=== PATIENT | male | born 1975 | race Hispanic/Latino ===

== ENCOUNTER 2022-07-18 13:42 | Inpatient (IN) | payer OTHER ==
--- NOTE | 2022-07-18 15:06 | XRay Report ---
CHEST 2 VIEWS INDICATION / CLINICAL INFORMATION: GLENN, dialysis. COMPARISON: None available. FINDINGS: SUPPORT DEVICES: Right IJ CVL in good position. HEART / MEDIASTINUM: No significant abnormality. LUNGS / PLEURA: Tiny bilateral pleural effusions. ADDITIONAL FINDINGS: No significant additional findings. IMPRESSION: 1. No acute findings. Tiny bilateral pleural effusions. Signer Name: Golden Maidson MD Signed: 07/18/2022 3:02 PM Workstation Name: [employer]
[2022-07-18 16:01] LABS: Basophils % (Auto) 1.1 % (0.0-1.8); Eosinophils # (Auto) 0.1 K/mm3 (0.0-0.4); Eosinophils % (Auto) 4.3 % (0.0-4.3); Hematocrit 25.5 % (35.5-45.6); Hemoglobin 8.6 gm/dl (11.8-15.2); Lymphocytes # (Auto) 0.7 K/mm3 (1.2-5.4); Lymphocytes % (Auto) 19.1 % (13.4-35.0); Mean Corpuscular HGB Conc 34 % (32-34); Mean Corpuscular Volume 92 fl (84-94); Monocytes # (Auto) 0.3 K/mm3 (0.0-0.8); Monocytes % (Auto) 7.9 % (0.0-7.3); Platelet Count 192 K/mm3 (140-440); Red Blood Count 2.78 M/mm3 (3.65-5.03); Red Cell Distribution Width 14.4 % (13.2-15.2)
[2022-07-18 16:17] LABS: Calcium 8.3 mg/dL (8.4-10.2)
--- NOTE | 2022-07-19 02:24 | Emergency Department Report ---
ED General Adult HPI - General Chief complaint: Dyspnea/Respdistress Stated complaint: DIALYSIS Time Seen by Provider: 07/19/22 02:18 Source: patient Mode of arrival: Ambulatory Limitations: No Limitations - History of Present Illness Initial comments: Patient is a 46-year-old male presenting to ED with request for routine dialysis. States he was diagnosed with autoimmune disorder roughly 5 months ago that led to kidney failure. States he received placement of a Vas-Cath and had dialysis at [facility] on 07/11. States he is having difficulties with his insurance company and has not yet received a dialysis chair. He currently denies any symptoms. Severity scale (0 -10): 0 - Related Data Home Medications Medication Instructions Recorded Confirmed Last Taken amLODIPine [Norvasc] 5 mg PO DAILY 07/19/22 07/19/22 1 Day Ago ~07/18/22 labetaloL [Labetalol 200mg TAB] 200 mg PO BID 07/19/22 07/19/22 1 Day Ago ~07/18/22 Allergies Allergy/AdvReac Type Severity Reaction Status Date / Time No Known Allergies Allergy Unverified 07/18/22 14:48 ED Review of Systems ROS: Stated complaint: DIALYSIS Other details as noted in HPI Constitutional: denies: chills, fever Respiratory: denies: cough, shortness of breath, wheezing Cardiovascular: edema. 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 port - Medications Home Medications: Home Medications Medication Instructions Recorded Confirmed Last Taken Type amLODIPine [Norvasc] 5 mg PO DAILY 07/19/22 07/19/22 1 Day Ago History ~07/18/22 labetaloL [Labetalol 200mg TAB] 200 mg PO BID 07/19/22 07/19/22 1 Day Ago History ~07/18/22 ED Physical Exam - General Limitations: No Limitations General appearance: alert, in no apparent distress - Head Head exam: Present: atraumatic, normocephalic - Respiratory Respiratory exam: Present: normal lung sounds bilaterally. Absent: respiratory distress - Cardiovascular Cardiovascular Exam: Present: regular rate, normal rhythm, normal heart sounds - GI/Abdominal GI/Abdominal exam: Present: soft. Absent: distended, tenderness - Extremities Exam Extremities exam: Present: pedal edema - Neurological Exam Neurological exam: Present: alert, oriented X3 - Psychiatric Psychiatric exam: Present: normal affect, normal mood - Skin Skin exam: Present: warm, dry, intact, normal color ED Course Vital Signs 07/18/22 07/19/22 07/19/22 14:37 01:29 01:31 Temperature 97.7 F Pulse Rate 82 90 Respiratory 20 14 Rate Blood Pressure 129/76 [Left] O2 Sat by Pulse 100 99 99 Oximetry 07/19/22 07/19/22 01:33 02:00 Temperature 98.2 F Pulse Rate 89 Respiratory 15 Rate Blood Pressure 147/94 [Left] O2 Sat by Pulse 99 100 Oximetry ED Medical Decision Making - Lab Data Result diagrams: 07/18/22 15:28 07/18/22 15:28 - Medical Decision Making Patient presenting with request for routine dialysis. Has not had dialysis since his recent Vas-Cath placement on 07/11 and does not have access to routine dialysis at this moment. On today's labs creatinine is 9.4, BUN 81, potassium 5.1. I consulted integrated program teacher Dr Salvador Gomez who recommended admission for observation and will evaluate tomorrow for dialysis. Dr. Allen to admit. Critical care attestation.: If time is entered above; I have spent that time in minutes in the direct care of this critically ill patient, excluding procedure time. ED Disposition Clinical Impression: Encounter for dialysis Disposition: ADMITTED INPATIENT Is pt being admited?: Yes Condition: Stable
[2022-07-19] MEDS ORDERED: ACETAMINOPHEN 325 MG TAB PO PRN (04:47)
[2022-07-19] MEDS ORDERED: MORPHINE 4 MG/1 ML INJ IV PRN (04:47)
[2022-07-19] MEDS ORDERED: MORPHINE 2 MG/1 ML INJ IV PRN (04:47)
[2022-07-19] MEDS ORDERED: ONDANSETRON 4 MG/2 ML INJ IV PRN (04:47)
--- NOTE | 2022-07-19 04:58 | History and Physical Report ---
History of Present Illness Date of examination: 07/19/22 Date of admission: 07/19/2022 Chief complaint: ESRD- On Dialysis History of present illness: 46-year-old male with known history of end-stage renal disease presents to the emergency room today for routine dialysis. He was just recently diagnosed with autoimmune disorder about 5 months ago which later led to to renal failure requiring dialysis. Patient had a Vas-Cath placed and dialysis done at [facility] on July 11, 2022. He has not been able to establish at any dialysis facility. Denies any chest pain or shortness of breath, no nausea or vomiting and no abdominal pain. Work-up in the emergency room today, labs were significant for hemoglobin of 8.6, hematocrit of 25.5, potassium of 5.1, BUN of 81 and creatinine of 9.4. Finishing Supervisor [employer] on-call-Dr. Gomez was consulted by the ER physician for evaluation of possible dialysis in the a.m. Past History Past Medical History: renal failure Past Surgical History: No surgical history Social history: no significant social history Family history: no significant family history Medications and Allergies Allergies Allergy/AdvReac Type Severity Reaction Status Date / Time No Known Allergies Allergy Unverified 07/18/22 14:48 Home Medications Medication Instructions Recorded Confirmed Last Taken Type amLODIPine [Norvasc] 5 mg PO DAILY 07/19/22 07/19/22 1 Day Ago History ~07/18/22 labetaloL [Labetalol 200mg TAB] 200 mg PO BID 07/19/22 07/19/22 1 Day Ago History ~07/18/22 Active Meds: Active Medications Acetaminophen (Acetaminophen 325 Mg Tab) 650 mg PO Q4H PRN PRN Reason: Pain MILD(1-3)/Fever >100.5/LAM Morphine Sulfate (Morphine 4 Mg/1 Ml Inj) 4 mg IV Q4H PRN PRN Reason: Pain , Severe (7-10) Morphine Sulfate (Morphine 2 Mg/1 Ml Inj) 2 mg IV Q4H PRN PRN Reason: Pain, Moderate (4-6) Ondansetron HCl (Ondansetron 4 Mg/2 Ml Inj) 4 mg IV Q8H PRN PRN Reason: Nausea And Vomiting Sodium Chloride (Sodium Chloride 0.9% 10 Ml Flush Syringe) 10 ml IV BID NOBLE Sodium Chloride (Sodium Chloride 0.9% 10 Ml Flush Syringe) 10 ml IV PRN PRN PRN Reason: LINE FLUSH Review of Systems Constitutional: no fever, no chills Exam - Constitutional Vitals: Temp Pulse Resp BP Pulse Ox 98.2 F 89 16 144/94 99 07/19/22 01:33 07/19/22 03:45 07/19/22 03:45 07/19/22 03:45 07/19/22 03:45 General appearance: Present: no acute distress, well-nourished - EENT Eyes: Present: PERRL, EOM intact. Absent: scleral icterus ENT: hearing intact, clear oral mucosa, dentition normal - Neck Neck: Present: supple, normal ROM - Respiratory Respiratory effort: normal, other (Vas-Cath right anterior chest wall) Respiratory: bilateral: CTA - Cardiovascular Rhythm: regular Heart Sounds: Present: S1 & S2. Absent: gallop, systolic murmur, diastolic murmur, rub, click - Extremities Extremities: no ischemia, pulses intact, pulses symmetrical, No edema, normal temperature, normal color, Full ROM Peripheral Pulses: within normal limits - Abdominal General gastrointestinal: Present: soft, non-tender, non-distended, normal bowel sounds. Absent: mass - Integumentary Integumentary: Present: clear, warm, dry, normal turgor. Absent: rash - Musculoskeletal Musculoskeletal: strength equal bilaterally - Psychiatric Psychiatric: appropriate mood/affect, intact judgment & insight, memory intact, cooperative - Neurologic Neurologic: CNII-XII intact, no focal deficits, moves all extremities Results - Labs CBC & Chem 7: 07/18/22 15:28 07/18/22 15:28 Labs: Abnormal lab results 07/18/22 07/18/22 Range/Units 15:28 15:28 WBC 3.5 L (4.5-11.0) K/mm3 RBC 2.78 L (3.65-5.03) M/mm3 Hgb 8.6 L (11.8-15.2) gm/dl Hct 25.5 L (35.5-45.6) % [place] % (Auto) 7.9 H (0.0-7.3) % Lymph # (Auto) 0.7 L (1.2-5.4) K/mm3 Sodium 136 L (137-145) mmol/L Potassium 5.1 H (3.6-5.0) mmol/L Carbon Dioxide 20 L (22-30) mmol/L BUN 81 H (9-20) mg/dL Creatinine 9.4 H (0.8-1.3) mg/dL Glucose 147 H (75-100) mg/dL Calcium 8.3 L (8.4-10.2) mg/dL ALT 6 L (7-56) units/L Total Protein 5.0 L (6.3-8.2) g/dL Albumin 3.0 L (3.9-5) g/dL Assessment and Plan Assessment: 1. End-stage renal disease on dialysis 2. History of pauci-immune crescentic glomerulonephritis Plan: 1. Patient admitted to the medical floor. 2. Consult placed to the benefits counselor for evaluation of possible dialysis this AM. DVT prophylaxis: Subcutaneous heparin CODE STATUS: Full code
[2022-07-19] MEDS ORDERED: SODIUM CHLORIDE 0.9% 100 ML IV PRN ×2 (09:55→12:32)
--- NOTE | 2022-07-19 09:55 | Consultation ---
Past History Past Medical History: renal failure Past Surgical History: No surgical history Social history: no significant social history Family history: no significant family history Medications and Allergies Allergies Allergy/AdvReac Type Severity Reaction Status Date / Time No Known Allergies Allergy Unverified 07/18/22 14:48 Home Medications Medication Instructions Recorded Confirmed Last Taken Type amLODIPine [Norvasc] 5 mg PO DAILY 07/19/22 07/19/22 1 Day Ago History ~07/18/22 labetaloL [Labetalol 200mg TAB] 200 mg PO BID 07/19/22 07/19/22 1 Day Ago History ~07/18/22 Active Meds: Active Medications Acetaminophen (Acetaminophen 325 Mg Tab) 650 mg PO Q4H PRN PRN Reason: Pain MILD(1-3)/Fever >100.5/LAM Morphine Sulfate (Morphine 4 Mg/1 Ml Inj) 4 mg IV Q4H PRN PRN Reason: Pain , Severe (7-10) Morphine Sulfate (Morphine 2 Mg/1 Ml Inj) 2 mg IV Q4H PRN PRN Reason: Pain, Moderate (4-6) Ondansetron HCl (Ondansetron 4 Mg/2 Ml Inj) 4 mg IV Q8H PRN PRN Reason: Nausea And Vomiting Sodium Chloride (Sodium Chloride 0.9% 10 Ml Flush Syringe) 10 ml IV BID NOBLE Sodium Chloride (Sodium Chloride 0.9% 10 Ml Flush Syringe) 10 ml IV PRN PRN PRN Reason: LINE FLUSH Exam - Vital Signs Vital signs: Vital Signs Temp Pulse Resp BP Pulse Ox 97.7 F 82 20 129/76 100 07/18/22 14:37 07/18/22 14:37 07/18/22 14:37 07/18/22 14:37 07/18/22 14:37 Results - Lab Results 07/18/22 15:28 07/18/22 15:28 Most recent lab results Calcium 8.3 mg/dL (8.4-10.2) L 07/18/22 15:28
--- NOTE | 2022-07-19 09:58 | Event Note ---
Patient states that he is currently being seen and followed by Dr. Smith who instructed him to come to the hospital to receive dialysis, patient currently is pending placement to the dialysis facility, I did write the dialysis orders, as patient wanted to get his treatment done, I have also informed Dr. Smith to see and follow the patient,
--- NOTE | 2022-07-19 10:23 | Consultation ---
History of Present Illness - Reason for Consult Consult date: 07/19/22 end stage renal disease, hyperkalemia, metabolic acidosis Requesting physician: ROSHAN ASHLEY - History of Present Illness This is a 46 yo M with past medical history of hypertension, proteinuria, renal failure progressed to ESRD secondary to microscopic polyangiitis diagnosed in 01/2022 evidenced by renal biopsy which showed crescentic glomerulonephritis. Patient was initiated on cyclophosphamide after IV steroid pulse therapy, however cyclophosphamide had to be discontinued due to neutropenia, nausea, vomiting. patient's renal function progressed with recent outpatient labs showing rising BUN/Cr at 77/9.3mg/dl along with worsening metabolic acidosis, hyponatremia, persistent proteinuria with urine protein/cr rtio > 7g/g, patient [facility] patient is still waiting for outpatient HD arrangement pending clearance from his insurance. Patient was instructed to come to ER for HD treatment, until outpatient HD chair is arranged. Repeat labs showed elevated BUN/Cr at 81/9.4mg/dl, K 5.2, CO2 20, Na at 136, Hb 8.6. renal consult is requested for management of ESRD/HD Past History Past Medical History: hypertension, renal failure Past Surgical History: Other (permcath ) Social history: no significant social history. denies: smoking, alcohol abuse, prescription drug abuse, IV drug use Family history: no significant family history Medications and Allergies Allergies Allergy/AdvReac Type Severity Reaction Status Date / Time No Known Allergies Allergy Unverified 07/18/22 14:48 Home Medications Medication Instructions Recorded Confirmed Last Taken Type amLODIPine [Norvasc] 5 mg PO DAILY 07/19/22 07/19/22 1 Day Ago History ~07/18/22 labetaloL [Labetalol 200mg TAB] 200 mg PO BID 07/19/22 07/19/22 1 Day Ago History ~07/18/22 Active Meds: Active Medications Acetaminophen (Acetaminophen 325 Mg Tab) 650 mg PO Q4H PRN PRN Reason: Pain MILD(1-3)/Fever >100.5/LAM Sodium Chloride (Nacl 0.9%) 100 mls @ 999 mls/hr IV MOHSEN PRN PRN Reason: Hypotension Morphine Sulfate (Morphine 4 Mg/1 Ml Inj) 4 mg IV Q4H PRN PRN Reason: Pain , Severe (7-10) Morphine Sulfate (Morphine 2 Mg/1 Ml Inj) 2 mg IV Q4H PRN PRN Reason: Pain, Moderate (4-6) Ondansetron HCl (Ondansetron 4 Mg/2 Ml Inj) 4 mg IV Q8H PRN PRN Reason: Nausea And Vomiting Sodium Chloride (Sodium Chloride 0.9% 10 Ml Flush Syringe) 10 ml IV BID NOBLE Sodium Chloride (Sodium Chloride 0.9% 10 Ml Flush Syringe) 10 ml IV PRN PRN PRN Reason: LINE FLUSH Review of Systems All systems: negative Constitutional: fatigue, weakness Exam - Vital Signs Vital signs: Vital Signs Temp Pulse Resp BP Pulse Ox 97.7 F 82 20 129/76 100 07/18/22 14:37 07/18/22 14:37 07/18/22 14:37 07/18/22 14:37 07/18/22 14:37 - General Appearance General appearance: well-developed, well-nourished, appears stated age EENT: ATNC, PERRL, mucous membranes moist Neck: Present: neck supple Respiratory: Clear to Ascultation Heart: regular, S1S2 Gastrointestinal: Present: normoactive bowel sounds Integumentary: no rash, other (no edema ) Neurologic: no focal deficit, alert and oriented x3, strength 5/5, CN 3-12 intact Psychiatric: mood/affect appropriate, cooperative Results - Lab Results 07/18/22 15:28 07/18/22 15:28 Most recent lab results Calcium 8.3 mg/dL (8.4-10.2) L 07/18/22 15:28 Assessment and Plan - Patient Problems (1) ESRD (end stage renal disease) Current Visit: Yes Status: Acute Plan to address problem: Arranged HD today, using 2K bath to correct hyperkalemia. Patient is otherwise stable for discharge after HD. Until pt's outpatient HD chair is arranged pt needs to come to ER for HD every 2-3 days (2) Microscopic polyangiitis with granulomatosis Current Visit: Yes Status: Acute Plan to address problem: pt with biopsy proven crescentic GN, could not tolerate cyclophosphamide due to neutropenia and other side effects. Pt is awaiting alternative treatment with Rituximab pending insurance clearance (3) Hyperkalemia Current Visit: Yes Status: Acute Plan to address problem: to be corrected with HD. cont 2g K diet (4) Metabolic acidosis Current Visit: Yes Status: Acute Plan to address problem: to be corrected with HD (5) Hyponatremia Current Visit: Yes Status: Acute (6) Hypertensive chronic kidney disease with stage 5 chronic kidney disease or end stage renal disease Current Visit: Yes Status: Acute Plan to address problem: monitor BP on current meds (7) Anemia in ESRD (end-stage renal disease) Current Visit: Yes Status: Acute Plan to address problem: start EPO with HD
[2022-07-19] MEDS ORDERED: EPOETIN ALFA-EPBX 10,000 UNIT/1 ML VIAL SUB-Q SCH (11:00)
--- NOTE | 2022-07-19 11:36 | Event Note ---
Date: 07/19/22 Patient seen and examined, admitted for dialysis need Plan for dialysis today, will recheck potassium level following dialysis Continue to monitor BP and resume home medications
[2022-07-19 15:38] VITALS: BP 152/89
--- NOTE | 2022-07-19 18:07 | Discharge Summary ---
Providers - Providers Date of Admission: 07/19/22 04:47 Date of discharge: 07/19/22 Attending physician: ANDI WHITESIDE 07/19/22 05:18 Consult to Physician [CONS] Routine Comment: Consulting Provider: ORESTES SANCHEZ Physician Instructions: Reason For Exam: ESRD- Needing dialysis Primary care physician: ABA ARRINGTON Hospitalization Condition: Stable Disposition: HOME / SELF CARE / HOMELESS Final Discharge Diagnosis (Prints w/discharge instructions): --ESRD initiated on HD. --History of pauci-immune crescentic glomerulonephritis. --Anemia of chronic disease. -- Hyperkalemia Exam - Constitutional Vitals: Temp Pulse Resp BP Pulse Ox 98.2 F 78 20 152/89 100 07/19/22 14:15 07/19/22 14:15 07/19/22 14:15 07/19/22 14:15 07/19/22 14:15 Plan Follow up with: ABA ARRINGTON MD [Primary Care Provider] - 3-5 Days
[2022-07-20] MEDS ORDERED: amLODIPine 5 MG TAB PO SCH (10:00)
== END 2022-07-19 15:40 | disposition home or self-care (01) | DRG 640 ==
LOC: ED 13:42 → 3A 07-19 04:47
PROVIDERS: ADMIT Internal Medicine Geriatric Medicine; ATTEND Internal Medicine
PROC: 5A1D70Z Performance of Urinary Filtration, Intermittent, Less than 6 Hours Per Day (ICD-10-PCS; principal; 2022-07-19)
DX: E87.5 Hyperkalemia (principal); N18.6 End stage renal disease; I12.0 Hypertensive chronic kidney disease with stage 5 chronic kidney disease or end stage renal disease; M31.7 Microscopic polyangiitis; Z99.2 Dependence on renal dialysis; E87.2 Acidosis; E87.1 Hypo-osmolality and hyponatremia; D63.1 Anemia in chronic kidney disease
CPT/HCPCS: 36415; 71046; 80053; 85025; G0378; J0885